=== PATIENT | female | born 1970 | race African-American/Black ===

== ENCOUNTER 2018-10-12 05:45 | Emergency (ER) | payer MEDICAID, OTHER, SELFPAY ==
[~2018-10-12] VITALS: Ht 162.6 cm; Wt 82.6 kg
[~2018-10-12 05:45] MED LIST: PROAIR RESPICL90 MCG IH; PROM118S5 PO
[2018-10-12 05:54] VITALS: BP 155/88
[2018-10-12] MEDS ORDERED: DIPHTH,PERTUSS(ACELL),TET TOX 0.5 ML DISP.SYRIN. VAX IM ONE (06:15)
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
== END 2018-10-12 06:45 | disposition home or self-care (01) ==
LOC: ER 05:45
DX: S99.821A Other specified injuries of right foot, initial encounter (principal); K21.9 Gastro-esophageal reflux disease without esophagitis; F17.210 Nicotine dependence, cigarettes, uncomplicated; Z71.6 Tobacco abuse counseling; Z88.0 Allergy status to penicillin; Z88.2 Allergy status to sulfonamides
CPT/HCPCS: 90471; 90715; 99283

== ENCOUNTER → 2020-05-16 | Emergency (ER) | payer SELFPAY ==
[~2020-05-16] MED LIST changes: +OXYMETAZOLINE 0.05% NASAL SPRAY 30ML BOTTLE. NS ONE
== END | disposition left against medical advice (07) ==
LOC: ER 03:42
DX: R04.0 Epistaxis (principal); Z53.21 Procedure and treatment not carried out due to patient leaving prior to being seen by health care provider

== ENCOUNTER 2021-08-10 19:16 | Emergency (ER) | payer SELFPAY ==
[~2021-08-10] VITALS: Ht 162.6 cm; Wt 86.3 kg
[~2021-08-10 19:16] MED LIST changes: -OXYMETAZOLINE 0.05% NASAL SPRAY 30ML BOTTLE. NS ONE
[2021-08-10] MEDS ORDERED: ORPHENADRINE CITRATE 60 MG/2 ML VIAL. IM ONE (21:15)
[2021-08-10] MEDS ORDERED: KETOROLAC 60 MG/2 ML VIAL. IM ONE (21:15)
[2021-08-10] MEDS ORDERED: MELO15TA23 PO (21:23)
[2021-08-10] MEDS ORDERED: CYCL10TA19 PO (21:23)
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
[2021-08-10 21:45] VITALS: BP 192/93
== END 2021-08-10 21:50 | disposition home or self-care (01) ==
LOC: ER 19:16
DX: M54.2 Cervicalgia (principal); M25.511 Pain in right shoulder; M54.50 Low back pain, unspecified; G89.11 Acute pain due to trauma; K21.9 Gastro-esophageal reflux disease without esophagitis; Z87.891 Personal history of nicotine dependence; Z88.0 Allergy status to penicillin; Z88.2 Allergy status to sulfonamides; V49.59XA Passenger injured in collision with other motor vehicles in traffic accident, initial encounter; Y93.89 Activity, other specified; Y92.488 Other paved roadways as the place of occurrence of the external cause; Y99.8 Other external cause status
CPT/HCPCS: 96372; 99284; J1885; J2360

== ENCOUNTER 2021-08-20 03:23 | Emergency (ER) | payer SELFPAY ==
[~2021-08-20] VITALS: Ht 162.6 cm; Wt 86.3 kg
[~2021-08-20 03:23] MED LIST changes: +CYCL10TA19 PO; +MELO15TA23 PO
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
[2021-08-20] MEDS ORDERED: ORPHENADRINE CITRATE 60 MG/2 ML VIAL. IM ONE (06:00)
[2021-08-20] MEDS ORDERED: KETOROLAC 60 MG/2 ML VIAL. IM ONE (06:00)
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
[2021-08-20 07:13] VITALS: BP 199/86
== END 2021-08-20 07:18 | disposition home or self-care (01) ==
LOC: ER 03:23
DX: S16.1XXA Strain of muscle, fascia and tendon at neck level, initial encounter (principal); M54.9 Dorsalgia, unspecified; R51.9 Headache, unspecified; I10 Essential (primary) hypertension; K21.9 Gastro-esophageal reflux disease without esophagitis; Z87.891 Personal history of nicotine dependence; Z88.0 Allergy status to penicillin; Z88.2 Allergy status to sulfonamides; V49.49XA Driver injured in collision with other motor vehicles in traffic accident, initial encounter; Y93.89 Activity, other specified; Y92.488 Other paved roadways as the place of occurrence of the external cause; Y99.8 Other external cause status
CPT/HCPCS: 70450; 71250; 72125; 74176; 96372; 99285; J1885; J2360